=== PATIENT | male | born 1945 | race Caucasian/White ===

== ENCOUNTER 2017-09-17 11:03 | Emergency (ER) | payer BC ==
[~2017-09-17] VITALS: Ht 182.9 cm; Wt 111.1 kg
[2017-09-17] MEDS ORDERED: ZITHROMAX250 MG PO (12:40)
[2017-09-17 13:14] VITALS: BP 157/99
== END 2017-09-17 12:50 | disposition home or self-care (01) ==
LOC: FSED 11:03
DX: R05 Cough (principal); J00 Acute nasopharyngitis [common cold]
CPT/HCPCS: 99282

== ENCOUNTER 2019-01-03 10:53 | Emergency (ER) | payer BC, MEDICARE ==
[~2019-01-03] VITALS: Ht 182.9 cm; Wt 111.1 kg
[~2019-01-03 10:53] MED LIST: ZITHROMAX250 MG PO
--- OUTSIDE RECORDS SUMMARY | 2019-01-03 10:55 | XMS REPORT | Continuity of Care Document ---
Author Author [facility] Interface Address Unknown Phone Unavailable Problems Problem Status Onset Date Classification Date Reported Comments Source Medications Medication Details Route Status Patient Instructions Ordering Provider Order Date Source Azithromycin (Zithromax) 250 Mg Tablet Daily Active Kari 09/17/2017 [facility] Allergies, Adverse Reactions, Alerts Substance Category Reaction Severity Reaction type Status Date Reported Comments Source Wuekyya-Dvh-Qfv Reductase Inhibitor Lightheaded, n/v Unknown Allergy to Substance Active 09/17/2017 [facility] Immunizations Immunization Date Given Site Status Last Updated Comments Source Results Order Name Results Value Reference Range Date Interpretation Comments Source Vital Signs Vital Sign Value Date Comments Source Encounters Location Location Details Encounter Type Encounter Number Reason For Visit Attending Provider ADM Date DC Date Status Source Departed Emergency Room [id number] NIESHA CONNOR MD 09/17/2017 09/17/2017 [facility] Procedures Procedure Code Date Perfomer Comments Source
[2019-01-03] MEDS ORDERED: KETOROLAC TROMETHAMINE 30 MG/ML VIAL IM PRN (11:45)
[2019-01-03] MEDS ORDERED: SODIUM CHLORIDE 0.9% 50ML 50 ML ONE (11:50)
[2019-01-03] MEDS ORDERED: IOPAMIDOL 370 MG/ML 200 ML INFUS..BTL INJ ONE (11:50)
--- NOTE | 2019-01-03 12:52 | Diagnostic Imaging Report ---
EXAM: CT Abdomen and Pelvis WITH contrast INDICATION: Right lower quadrant abdominal pain. COMPARISON: None. TECHNIQUE: Abdomen and pelvis were scanned utilizing a multidetector helical scanner from the lung base to the pubic symphysis after administration of IV contrast. Coronal and sagittal reformations were obtained. Routine protocol was performed. Scan was performed when during portal venous phase. IV CONTRAST: 100 cc of Isovue 370 ORAL CONTRAST: Water COMPLICATIONS: None RADIATION DOSE: Total DLP: 835.9 mGy*cm Dose modulation, iterative reconstruction, and/or weight based adjustment of the mA/kV was utilized to reduce the radiation dose to as low as reasonably achievable. FINDINGS: LINES and TUBES: None. LOWER THORAX: Patchy dependent atelectasis. Scattered coronary atherosclerosis. HEPATOBILIARY: Diffuse mild hepatic steatosis. No evidence of focal lesion. No biliary ductal dilation. GALLBLADDER: Cholelithiasis without evidence of cholecystitis. SPLEEN: No splenomegaly. PANCREAS: No focal masses or ductal dilatation. ADRENALS: No adrenal nodules KIDNEYS/URETERS: Kidneys enhance symmetrically. No evidence of hydronephrosis, solid mass, or stone. GI TRACT: No evidence of wall thickening or distension. Appendix is normal. There is sigmoid colonic diverticulosis without CT evidence of diverticulitis. PELVIC ORGANS/BLADDER: Unremarkable. LYMPH NODES: No lymphadenopathy. VESSELS: There are scattered atherosclerotic calcifications in the aorta and branch vessels. PERITONEUM / RETROPERITONEUM: No free air or fluid. BONES AND SOFT TISSUES: No acute osseous abnormality. No suspicious lytic or blastic lesions. Fat-containing right inguinal hernia. Degenerative changes at L5-S1. CONCLUSION: Normal appendix. Diffuse mild hepatic steatosis. Cholelithiasis without CT evidence of cholecystitis. Sigmoid colonic diverticulosis. Signed by: Dr. Roseanna Lira MD on 01/03/2019 12:49 PM
[2019-01-03] MEDS ORDERED: KETOROLAC TROMETHAMINE 30 MG/ML VIAL ONE (13:01)
[2019-01-03 13:17] VITALS: BP 173/90
== END 2019-01-03 13:22 | disposition home or self-care (01) ==
LOC: FSED 10:53
DX: K40.90 Unilateral inguinal hernia, without obstruction or gangrene, not specified as recurrent (principal); I10 Essential (primary) hypertension; E03.9 Hypothyroidism, unspecified; K21.9 Gastro-esophageal reflux disease without esophagitis; K80.20 Calculus of gallbladder without cholecystitis without obstruction; K76.0 Fatty (change of) liver, not elsewhere classified; K57.30 Diverticulosis of large intestine without perforation or abscess without bleeding
CPT/HCPCS: 74177; 80053; 81003; 85025; 99284; J1885; Q9967

== ENCOUNTER 2019-03-20 11:45 | Observation (INO) | payer MEDICARE ==
[~2019-03-20] VITALS: Ht 182.9 cm; Wt 101.2 kg
--- OUTSIDE RECORDS SUMMARY | 2019-03-20 11:48 | XMS REPORT ---
[facility] Address Unknown Phone Unavailable Care Team Providers Care Button Tufter Name Role Phone ROSINA AN Unavailable Unavailable Javed DIMAS Unavailable Unavailable ROYCE HAMMOND Unavailable Unavailable Problems This patient has no known problems. Allergies, Adverse Reactions, Alerts This patient has no known allergies or adverse reactions. Medications This patient has no known medications. Results Test Description Test Time Test Comments Text Results Atomic Results Result Comments TISSUE EXAM 2019-01-30 17:27:00 Surgical Pathology Report Case: [id number] Authorizing Provider: Simeon An, Collected: 01/23/2019 1111 Ordering Location: [facility] Received: 01/23/2019 [facility] SERVICES Pathologist: Pablo Flaherty MD Specimen: Stoma ch, PARTIAL GASTRECTOMY STOMACH, PARTIAL GASTRECTOMY: - GASTROINTESTINAL STROMAL TUMOR, SPINDLE CELL TYPE, FAVOR LOW GRADE (SEE COMMENT), 2.5CM IN GREATEST DIMENSION - SURGICAL RESECTION MARGINS, NEGATIVE FOR TUMOR - AJCC CLASSIFICATION (8TH EDITION) pT2, Mx (SEE SYNOPTIC REPORT) Signing Pathologist Direct Phone Line: [phone] signed by Pablo Flaherty MD on 01/30/2019 at 5:27 PMSections show spindle cell proliferation, compatible with patient's prior biopsy [id number]. The mitotic count is 5 per 5 mm2 (based on highest count), which is bordering between low and high grade. Ki67 labeling index is approximately 3%. Taken all the findings together, a low grade process is favored. (The risk of progressive disease should be very low if it represents low grade (1.9%), based on the size. If classified as high grade, the risk of progressive disease would be moderate (16%), based on the information from [employer] GIST protocol.) Clinical correlation and follow-up are recommended.GASTROINTESTINAL STROMAL TUMOR (GIST): Resection (GIST Res - All Specimens)CLINICAL Preresection Treatment: Previous biopsy or surgery: Previous FNA SPECIMEN Procedure: Resection Type: Partial Gastrectomy TUMOR Tumor Site: Stomach : Gastric antrum Histologic Type: Gastrointestinal stromal tumor, spindle cell type Histologic Grade: G1: Low grade; mitotic rate <=5 / 5 mm2 Tumor Size: Greatest dimension in Centimeters (cm): 2.5 Centimeters (cm) Additional Dimension in Centimeters (cm): 2.5 Centimeters (cm) Additional Dimension in Centimeters (cm): 2.2 Centimeters (cm) Tumor Focality: Unifocal Accessory Findings: Mitotic Rate: 5 mitoses per 5 mm2 Necrosis: Not identified Risk Assessment: Very low risk Treatment Effect: No known presurgical therapy MARGINS Margins: Uninvolved by GIST Distance of Tumor from Closest Margin: 0.4 Centimeters (cm)LYMPH NODES Regional Lymph Nodes: No lymph nodes submitted or found PATHOLOGIC STAGE CLASSIFICATION (pTNM, AJCC 8th Edition) Primary Tumor (pT): pT2 SPECIAL STUDIES Immunohistochemical Studies: Not performed 67352, 70183Vmviksw mass, unilateral inguinal hernia without obstruction or gangrene, recurrent, no specified, rightReceived in one part. Partial gastrectomyReceived fresh labeled with the patient's name, accession number and "stomach" is a 7.0 x 3.0 x 2.5 cm irregular portion of unoriented stomach within a laparoscopic bag. There is a minimal amount of perigastric tissue and a T-shaped staple line. The serosa is smooth, pink-red to maroon with focal areas of hemorrhage. The specimen is opened to reveal a well-circumscribed, owen-white, firm subserosal and submucosal mass measuring 2.5 x 2.5 x 2.2 cm. The mass abuts the serosa and is 0.4 cm from the closest staple line. The remaining mucosa is rothman-pink, smooth to nodular with focal areas of hemorrhage. The wall thickness is 0.1 cm. No lymph nodes are present in the adipose tissue. Asphalt Surface Heater Operator sections are submitted. Ink code: Blue staple margin; black serosa; Section code: A1-A7 mass in its entirety; A8 public relations representative of nodular and hemorrhagic mucosa. CG/bc Performed.The interpretation of this case included the use of immunohistochemistry or special stains.Control Slides Examined: In-house known positive controls were evaluated along with the test tissue. These control slides run alongside of the patients sample show appropriate staining. Internal positive and negative controls when available are evaluated Immunohistochemistry technical testing was performed at [facility], Pathology Laboratory where it was developed and its performance characteristics were determined. It has not been cleared or approved by the U.S. Food and Drug Administration. The FDA has determined that such clearance or approval is not necessary. The test is used for clinical purposes. It should not be regarded as investigational or for research. This laboratory is certified under the Clinical Laboratory Improvement Amendments of 1988 (CLIA-88) as qualified to perform high complexity clinical laboratory testing. CT ABD/PEL WITH CONTRAST-HOPD 2019-01-03 12:40:00 [place] [address] Patient Name: BYRON GUTIERREZ MR #: [id number] : 1945 Age/Sex: 73/M Req #: [id number] Adm Physician: Ordered by: JANEY DIMAS MD Report #: [id number] Location: [facility] Room/Bed: Procedure: [id number] HOPD/CT ABD/PEL WITH CONTRAST-HOPD Exam Date: 01/03/19 Exam Time: 1215 REPORT STATUS: Signed EXAM: CT Abdomen and Pelvis WITH contrast INDICATION: Right lower quadrant abdominal pain. COMPARISON: None. TECHNIQUE: Abdomen and pelvis were scanned utilizing a multidetector helical scanner from the lung base to the pubic symphysis after administration of IV contrast. Coronal and sagittal reformations were obtained. Routine protocol was performed. Scan was performed when during portal venous phase. IV CONTRAST: 100 cc of Isovue 370 ORAL CONTRAST: Water COMPLICATIONS: None RADIATION DOSE: Total DLP: 835.9 mGy*cm Dose modulation, iterative reconstruction, and/or weight based adjustment of the mA/kV was utilized to reduce the radiation dose to as low as reasonably achievable. FINDINGS: LINES and TUBES: None. LOWER THORAX: Patchy dependent atelectasis. Scattered coronary atherosclerosis. HEPATOBILIARY: Diffuse mild hepatic steatosis. No evidence of focal lesion. No biliary ductal dilation. GALLBLADDER: Cholelithiasis without evidence of cholecystitis. SPLEEN: No splenomegaly. PANCREAS: No focal masses or ductal dilatation. ADRENALS: No adrenal nodules KIDNEYS/URETERS: Kidneys enhance symmetrically. No evidence of hydronephrosis, solid mass, or stone. GI TRACT: No evidence of wall thickening or distension. Appendix is normal. There is sigmoid colonic diverticulosis without CT evidence of diverticulitis. PELVIC ORGANS/BLADDER: Unremarkable. LYMPH NODES: No lymphadenopathy. VESSELS: There are scattered atherosclerotic calcifications in the aorta and branch vessels. PERITONEUM / RETROPERITONEUM: No free air or fluid. BONES AND SOFT TISSUES: No acute osseous abnormality. No suspicious lytic or blastic lesions. Fat-containing right inguinal hernia. Degenerative changes at L5-S1. CONCLUSION: Normal appendix. Diffuse mild hepatic steatosis. Cholelithiasis without CT evidence of cholecystitis. Sigmoid colonic diverticulosis. Signed by: Dr. Najma Garcia MD on 01/03/2019 12:49 PM Dictated By: NAJMA GARCIA MD 1249 Transcribed By: BEN on 01/03/19 1249 COPY TO: JANEY DIMAS MD FINE NEEDLE ASPIRATION BY CLINICIAN 2018-11-21 17:11:00 Medical Cytology Report Case: [id number] Authorizing Provider: Ladonna Hammond MD Collected: 11/15/2018 1022 Ordering Location: [facility] Endoscopy Received: 11/16/2018 0852 Services Pathologist: Pablo Flaherty MD Specimen: Gastric SUBEPITHELIAL GASTRIC LESION, FNA BY CLINICIAN (CYTOSPINS AND CELL BLOCK OF ASPIRATE): - GASTROINTESTINAL STROMAL TUMOR, SPINDLE CELL TYPE ( SEE COMMENT) Signing Pathologist Direct Phone Line: [phone] ically signed by Pablo Flaherty MD on 11/21/2018 at 5:11 PMSections show spindle cell proliferation with predominantly bland features. No significant increase in mitotic figures are seen in the current sampling. No necrosis is seen. Immunostains performed on cell block sections show lesional cells to be positive for CD117 and DOG1, while negative for AE1/AE3, SMA and S100. Taken together, the findings are most compatible with a diagnosis of gastrointestinal stromal tumor. A low grade process is favored based on the current sampling. If possible, correlation with final resection specimen is recommended. 32630, 77986, 64960, 49050 X 42.1 cm oval intramural (subepithelial) lesion found in the cardia of the stomachGASTRIC LESION FNAPrepared cell block(A2) and 4 cytospins from 14 ml cytorich red fixative sampleCollected: [id number]: [id number].The interpretation of this case included the use of immunohistochemistry or special stains.Please see the immunohistochemistry results in the COMMENT section. Immunohistochemistry technical testing was performed at [facility], Pathology Laboratory where it was developed and its performance characteristics were determined. It has not been cleared or approved by the U.S. Food and Drug Administration. The FDA has determined that such clearance or approval is not necessary. The test is used for clinical purposes. It should not be regarded as investigational or for research. This laboratory is certified under the Clinical Laboratory Improvement Amendments of 1988 (CLIA-88) as qualified to perform high complexity clinical laboratory testing.[facility], Department of Pathology, [address] [place], [place] [id number], [facility], [address] [place] [id number], [facility], Department of Pathology, [address] [place] [id number], FINE NEEDLE ASPIRATE (FNA) REQUEST 2018-11-16 10:00:00 CYTOLOGY RESULT POINTER (SHAILAMALIKA) (test mfwq=[id number]) See Separate Report
--- OUTSIDE RECORDS SUMMARY | 2019-03-20 11:48 | XMS REPORT | Summary of Care ---
Author Jeremy Becerra [facility] Unknown Address Unknown Phone Unavailable Care Team Providers Care Lamination Inspector Name Role Phone ANNEMARIE Whaley, BECKY Unavailable Unavailable ADRIAN SANDERS Unavailable Unavailable Nathan Ramos MD Unavailable Unavailable NATHAN RAMOS M.D. 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.40) Status: Active Plantar fasciitis (728.71, M72.2) Status: Active Osteoarthritis of both knees, unspecified osteoarthritis type (715.96, M17.0) Status: Active Glucose intolerance (impaired glucose tolerance) (790.22, R73.02) Status: Active Hypothyroid (244.9, E03.9) Status: Active Papule of skin (709.8, R23.8) Status: Active Allergic rhinitis (477.9, J30.9) Status: Active Statin intolerance (995.27, Z78.9) Status: Active Need for zoster vaccination (V04.89, Z23) Status: Active Hypothyroidism (244.9, E03.9) Status: Active Lumbar disc disease (722.93, M51.9) Status: Active Thoracic disc disease (722.92, M51.9) Status: Active Back pain (724.5, M54.9) Status: Active Paresthesia (782.0, R20.2) Status: Active Mixed hyperlipidemia (272.2, E78.2) Status: Active Need for hepatitis C screening test (V73.89, Z11.59) Status: Active Hepatitis C antibody positive in blood (795.79, R76.8) Status: Active Screening for AAA (abdominal aortic aneurysm) (V81.2, Z13.6) Status: Active Colon cancer screening (V76.51, Z12.11) Status: Active Sternum pain (786.50, R07.89) Status: Active GERD (gastroesophageal reflux disease) (530.81, K21.9) Status: Active Blood pressure elevated without history of HTN (796.2, R03.0) Status: Active Acute upper respiratory infection (465.9, J06.9) Status: Active Medications Name Dates Details Levothyroxine Sodium 125 MCG Oral Tablet TAKE 1 TABLET BY MOUTH EVERY MORNING Quantity: 90 RASHAUN P.ADRIAN Keith * Start : 25-Jun-2016 Active Omeprazole 20 MG Oral Capsule Delayed Release TAKE ONE CAPSULE BY MOUTH DAILY * Quantity: 90 Refills: 1 RASHAUN Nikki.ADRIAN Keith * Start : 11-Dec-2016 Active Ezetimibe 10 MG Oral Tablet TAKE 1 TABLET BY MOUTH DAILY. * Quantity: 90 Refills: 1 RASHAUN ADRIAN Stone * Start : 16-Aug-2017 Active Hiuekdpil-Mnfpnqsk-JD 30-2-10 MG/5ML Oral Syrup TAKE 5 ML EVERY 4 TO 6 HOURS NEEDED. * Quantity: 240 Refills: 0 SHARPE N.P., BECKY * Start : 26-Aug-2018 Active Fluticasone Propionate 50 MCG/ACT Nasal Suspension USE 1 SPRAY IN EACH NOSTRIL TWICE DAILY. * Quantity: 1 Refills: 1 SHARPE N.P., BECKY * Start : 26-Aug-2018 Active 15.8 ML Bottle predniSONE 10 MG Oral Tablet TAKE 2 TABLET Daily take 2 tablets once daily for 5 days, then take 1 tablet onc e daily for 5 days * Quantity: 15 Refills: 0 SHARPE N.P., BECKY * Start : 31-Aug-2018 Active Allergies and Adverse Reactions Name Dates Details No Known Drug Allergies (Allergy) Status: Active Past Medical History Name Dates Details History of Prediabetes (790.29, R73.03) Status: Resolved History of thyroiditis (V12.29, Z86.39) Status: Resolved Procedures Procedure Dates Details History of Tonsillectomy Completed Immunization Name Dates Details Tdap on: Aug-2013 Prevnar 13 Intramuscular Suspension on: 09-Jul-2014 Pneumovax 23 25 MCG/0.5ML Injection Injectable on: 22-Jul-2016 Shingrix 50 MCG Intramuscular Suspension Reconstituted on: Oct-2017 Shingrix 50 MCG/0.5ML Intramuscular Suspension Reconstituted on: 17-Nov-2017 Shingrix 50 MCG/0.5ML Intramuscular Suspension Reconstituted on: 10-Mar-2018 Influenza on: 09-Jun-2018 Fluzone High-Dose 0.5 ML Intramuscular Suspension Prefilled Syringe on: 09-Jun-2018 Family History Name Dates Details Family history of cerebrovascular accident (CVA) (V17.1, Z82.3) Status: Active Social History Name Dates Details - Status: Name Dates Details Former smoker Vital Signs Date Test Result Details No Known Vitals to report Results Date Description Value Details Results not documented Plan of Care Name Dates Details Planned Observations Planned Goals not documented Instructions Name Dates Details Instructions not documented Encounters Appointment; JOHN BOWERS D.O. Encounter Diagnosis: Problem not documented On: 27-Jan-2017 9:15 Appointment; JOHN BOWERS D.O. Encounter Diagnosis: Problem not documented On: 08-Feb-2017 7:30 Appointment; ADRIAN RODNEY P.A. Encounter Diagnosis: Problem not documented On: 16-Aug-2017 8:00 Appointment; ADRIAN RODNEY P.A. Encounter Diagnosis: Problem not documented On: 16-Dec-2017 9:15 Appointment; ADRIAN RODNEY P.A. Encounter Diagnosis: Problem not documented On: 15-Jun-2018 7:45 Appointment; ADRIAN RODNEY P.A. Encounter Diagnosis: Problem not documented On: 15-Jun-2018 7:45 Appointment; BECKY SHARPE NP Encounter Diagnosis: Problem not documented On: 26-Aug-2018 15:30
--- OUTSIDE RECORDS SUMMARY | 2019-03-20 11:48 | XMS REPORT | Continuity of Care Document ---
Author Author [facility] Address Unknown Phone Unavailable Care Team Providers Care Re Recording Mixer Name Role Phone [facility] [employer] Information [employer] Unavailable Unavailable Problems No Data Provided for This Section Medications Medication Details Route Status Patient Instructions Ordering Provider Order Date Source Azithromycin (Zithromax) 250 Mg Tablet Daily Active Kari 09/17/2017 [facility] Allergies, Adverse Reactions, Alerts Substance Category Reaction Severity Reaction type Status Date Reported Comments Source Yamsgao-Orv-Zgq Reductase Inhibitor Lightheaded, n/v Unknown Allergy to Substance Active 09/17/2017 [facility] Immunizations No Data Provided for This Section Results No Data Provided for This Section Pathology Reports No Data Provided for This Section Diagnostic Reports No Data Provided for This Section Consultation Notes No Data Provided for This Section Discharge Summaries No Data Provided for This Section History and Physicals No Data Provided for This Section Vital Signs No Data Provided for This Section Encounters Location Location Details Encounter Type Encounter Number Reason For Visit Attending Provider ADM Date DC Date Status Source Departed Emergency Room [id number] NIESHA CONNOR MD 09/17/2017 09/17/2017 [facility] Procedures No Data Provided for This Section Assessment and Plan No Data Provided for This Section Plan of Care Plan of Care Date Source Discharge Date 09/17/17 12:50pm Disposition HOME, SELF-CARE Condition at Discharge Stable Instructions/Education Provided Upper Respiratory Infection - Adult Prescriptions See Medication Section Additional Instructions/Education Recommend: Mucinex (plain or DM) 600 mg - 2 tabs twice daily, to help with mucous and cough. Recommend: Zyrtec (Cetirizine) 10 mg - 1 tab daily, to help dry up nasal secretions. 09/17/2017 [facility] Social History Social History Date Source Smoking Status Start Date Stop Date Never Smoker 09/17/2017 [facility] Family History No Data Provided for This Section Advance Directives Order Name Results Value Date Source Advance Directives Advance Directives Directive Response Recorded Date/Time Does the patient have an advance directive? No 09/17/17 11:27am If yes, is advance directive on file with [facility]? No 09/17/17 11:27am If not on file with [facility] will patient provide a copy? No 09/17/17 11:27am Do you have a Directive to Physician? No 09/17/17 11:27am Do you have a Medical Power of Hand Kiss Setter? No 09/17/17 11:27am Do you have an out of hospital Do Not Resuscitate Order? No 09/17/17 11:27am Do you have any special needs we should be aware of? No 09/17/17 11:27am Do you have a support person here with you today? No 09/17/17 11:27am Did patient receive Notice of Privacy Practices? Yes 09/17/17 11:27am Did patient receive patient rights and responsibilities? Yes 09/17/17 11:27am 09/17/2017 [facility] Functional Status No Data Provided for This Section
--- OUTSIDE RECORDS SUMMARY | 2019-03-20 11:48 | XMS REPORT | Clinical Summary ---
Author Author YOHAN [facility] Electronic MaterialsSteele Memorial Medical CenterSocialplex Inc.[facility] Address Unknown Phone Unavailable Care Team Providers Care Furniture Upholstery Mechanic Name Role Phone Pcp, No PCP Unavailable Allergies Comments Active Allergy Reactions Severity Noted Date lightheadedness Ylcpyyj-Zwn-Mbz Reductase Other (See Medium 10/25/2018 Inhibitors Comments) Medications End Date Status Medication Sig Dispensed Refills Start Date Active omeprazole (PRILOSEC) 20 Take 20 mg by 0 MG capsule mouth daily. Active levothyroxine (SYNTHROID, Take 125 mcg 0 LEVOTHROID) 125 MCG by mouth tablet Every morning on an empty stomach. 11/01/2018 Discontinued omeprazole (PRILOSEC) 20 Take 20 mg by 0 MG capsule mouth daily. 11/01/2018 Discontinued levothyroxine (SYNTHROID, Take 125 mcg 0 LEVOTHROID) 125 MCG by mouth tablet Every morning on an empty stomach. 02/04/2019 acetaminophen-codeine Take 1 tablet 30 tablet 0 (TYLENOL-CODEINE #3) by mouth 9 300-30 mg per tablet every 4 (four) hours as needed for Pain for up to 10 days. 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 Encounters Care Team Description Date Type Specialty Miguelina Hunter MD 01/23/2019 Anesthesia Event Simeon An MD LAPAROSCOPY,GASTRECTOMY 01/23/2019 Surgery Simeon An MD 01/23/2019 [facility] General Internal Medicine - Encounter 01/25/2019 01/23/2019 Travel Resource, [employer] Preadmit Phone 01/18/2019 Hospital Pre-Admission Testing Encounter Ladonna Vazquez MD UPPER ENDOSCOPY,FNA W/ULTRASOUND 11/15/2018 Surgery Gastroenterology Flor Rodríguez 11/15/2018 Anesthesia Gastroenterology Event Ladonna Vazquez MD 11/15/2018 Hospital Gastroenterology Encounter Resource, [facility] Preadmit Phone 10/25/2018 Hospital Pre-Admission Testing Encounter after 03/19/2018 Social History Date Tobacco Use Types Packs/Day Years Used Former Smoker Smokeless Tobacco: Never Used Comments: quit 27 years ago Alcohol Use Drinks/Week oz/Week Comments No Alcohol Habits Answer Date Recorded How often do you have a drink containing alcohol? Never 10/25/2018 How many drinks containing alcohol do you have on Not asked a typical day when you are drinking? How often do you have six or more drinks on one Not asked occasion? Sex Assigned at Date Recorded Not on file Industry Job Start Date Occupation Not on file Not on file Not on file Travel End Travel History Travel Start No recent travel history available. Last Filed Vital Signs Time Taken Vital Sign Reading 01/25/2019 8:50 AM CDT Blood Pressure 160/82 01/25/2019 8:50 AM CDT Pulse 76 01/25/2019 8:50 AM CDT Temperature 35.6 C (96.1 F) 01/25/2019 8:50 AM CDT Respiratory Rate 18 01/25/2019 8:50 AM CDT Oxygen Saturation 94% - Inhaled Oxygen - Concentration 01/23/2019 8:48 AM CDT Weight 112.7 kg (248 lb 8 oz) 01/23/2019 8:48 AM CDT Height 182.9 cm (6') 01/23/2019 8:48 AM CDT Body Mass Index 33.7 Plan of Treatment Not on file Implants Device Identifier Shelf Expiration Date Model / Serial / Lot Implanted Type Area Manufactur [id number] 02/03/2022 [id number] / / [id number] Mesh Vladislav Pre-Shp 4.5x10cm [id number] Right: Groin CR - [id number] BARD:DAVOL Implanted: Qty: 1 on 01/23/2019 by Simeon An MD Procedures Comments Procedure Name Priority Date/Time Associated Diagnosis TISSUE EXAM AP Routine 01/23/2019 11:11 AM CDT HERNIORRHAPHY,HIATAL 01/23/2019 Gastric mass 10:00 AM CDT Unilateral inguinal hernia without obstruction or gangrene, recurrence not specified Case Notes 90 MINS PER NICKY(NO ICU BED NEEDED)CAT HY CALLED TO SWAP ROOM 19 AND ROOM 21/RUBEN 614 @ 2:17 HERNIORRHAPHY,INGUINAL 01/23/2019 Gastric mass UNILATERAL 10:00 AM CDT Unilateral inguinal hernia without obstruction or gangrene, recurrence not specified Case Notes 90 MINS PER NICKY(NO ICU BED NEEDED)CAT HY CALLED TO SWAP ROOM 19 AND ROOM 21/RUBEN 614 @ 2:17 LAPAROSCOPY,GASTRECTOMY 01/23/2019 Gastric mass 10:00 AM CDT Unilateral inguinal hernia without obstruction or gangrene, recurrence not specified Case Notes 90 MINS PER NICKY(NO ICU BED NEEDED)CAT HY CALLED TO SWAP ROOM 19 AND ROOM 21/RUBEN 614 @ 2:17 FINE NEEDLE ASPIRATE Routine 11/15/2018 (FNA) REQUEST 10:22 AM CDT FINE NEEDLE ASPIRATION BY AP Routine 11/15/2018 CLINICIAN 10:22 AM CDT REPORT OF PROCEDURE - 11/15/2018 ENDOSCOPY URL 10:18 AM CDT UPPER ENDOSCOPY,FNA 11/15/2018 Abnormal findings on W/ULTRASOUND 10:00 AM CDT diagnostic imaging of abdomen Special Needs (LINEAR SCOPE) after 03/19/2018 Results * Tissue Exam (01/23/2019 11:11 AM CDT) Case Report Surgical Pathology [facility] Report [facility] Case: [id number] Authorizing Provider:Simeon An, Collected: 01/23/2019 Christopher HOWARD Ordering Location: [facility] Received: 01/23/2019 1437 SERVICES Pathologist: Pablo Flaherty MD Specimen:Stomach, PARTIAL GASTRECTOMY DIAGNOSIS STOMACH, PARTIAL GASTRECTOMY: 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 proliferation, compatible with [facility] patient's prior biopsy C19952. The mitotic count is 5 per 5 [...] based on the information from [employer] GIST protocol.) Clinical correlation and follow-up are recommended. SYNOPTIC REPORT GASTROINTESTINAL STROMAL TUMOR [facility] (GIST): Resection(GIST Res [facility] - All Specimens) CLINICAL Preresection Treatment:Previous biopsy or surgery: Previous FNA SPECIMEN Procedure:Resection Type:Partial Gastrectomy TUMOR Tumor Site:Stomach :Gastric antrum Histologic Type:Gastrointestinal stromal tumor, spindle cell type Histologic Grade:G1: Low grade; mitotic rate <=5 / 5mm2 Tumor Size:Greatest dimension in Centimeters (cm): 2.5 Centimeters (cm) Additional Dimension in Centimeters (cm):2.5 Centimeters (cm) Additional Dimension in Centimeters (cm):2.2 Centimeters (cm) Tumor Focality:Unifocal Accessory Findings: Mitotic Rate:5 mitoses per 5 mm2 Necrosis:Not identified Risk Assessment:Very low risk Treatment Effect:No known presurgical therapy MARGINS Margins:Uninvolved by GIST Distance of Tumor from Closest Margin:0.4 Centimeters (cm) LYMPH NODES Regional Lymph Nodes:No lymph nodes submitted or found PATHOLOGIC STAGE CLASSIFICATION (pTNM, AJCC 8th Edition) Primary Tumor (pT):pT2 SPECIAL STUDIES Immunohistochemical Studies:Not performed CPT Code(s) 32424, 59199 [facility] CLINICAL HISTORY Gastric mass, unilateral [facility] inguinal hernia without [facility] obstruction or gangrene, recurrent, no specified, right SPECIMEN SOURCE Received in one part. Partial [facility] gastrectomy [facility] GROSS DESCRIPTION Received fresh labeled with [facility] the patient's name, accession [facility] number and "stomach" is a 7.0 x [...] nodes are present in the adipose tissue. C.O.D. Biller sections are submitted. Ink code: Blue staple margin; black serosa; Section code: A1-A7 mass in its entirety; A8 career services representative of nodular and hemorrhagic mucosa. CG/bc MICROSCOPIC DESCRIPTION Performed. [facility] SPECIAL STUDIES The interpretation of this [facility] case included the use of [facility] immunohistochemistry or special stains. Control Slides Examined: In-house known positive controls were evaluated along with the test tissue. These control slides run alongside of the patients sample show appropriate staining. Internal positive and negative controls when available are evaluated Immunohistochemistry technical testing was performed at [facility], Pathology Laboratory where it was [...] to perform high complexity clinical laboratory testing. Specimen Tissue Performing Organization Address City/State/Zipcode Phone Number [address] [address] [facility] * FINE NEEDLE ASPIRATE (FNA) REQUEST (11/15/2018 10:22 AM CDT) Cytology See Separate Report [facility] Specimen Fine Needle Aspirate Performing Organization Address City/[facility]/Zipcode Phone Number [address] [address] [facility] * Fine Needle Aspirate by Clinician (11/15/2018 10:22 AM CDT) Case Report Medical Cytology [facility] Report [facility] Case: [id number] Authorizing Provider:Ladonna Vazquez MDCollected: 11/15/2018 1022 Ordering Location: [facility] Endoscopy Received: 11/16/2018 0852 Services Pathologist: Pablo Flaherty MD Specimen:Gastric DIAGNOSIS SUBEPITHELIAL GASTRIC LESION, [facility] FNA BY CLINICIAN (CYTOSPINS [facility] AND CELL BLOCK OF ASPIRATE): - GASTROINTESTINAL STROMAL TUMOR, SPINDLE CELL TYPE ( SEE COMMENT) Signing Pathologist Direct Phone Line: [phone] COMMENT Sections show spindle cell [facility] proliferation with [facility] predominantly bland features. No significant increase in [...] correlation with final resection specimen is recommended. CPT Code(s) 32816, 54455, 50100, 75416 X 4 [facility] CLINICAL DATA 2.1 cm oval intramural [facility] (subepithelial) lesion found [facility] in the cardia of the stomach SPECIMEN SOURCE GASTRIC LESION FNA [facility] GROSS DESCRIPTION Prepared cell block(A2) and [address] [facility] cytospins from 14 ml cytorich [facility] red fixative sample Collected: [id number] Received: [id number] MICROSCOPIC DESCRIPTION Performed. [facility] SPECIAL STUDIES The interpretation of this [facility] case included the use of [facility] immunohistochemistry or special stains. Please see the immunohistochemistry results in the COMMENT section. Immunohistochemistry technical testing was performed at [facility], Pathology Laboratory where it was [...] to perform high complexity clinical laboratory testing. Gross assessment was [facility] performed at [place], Department of [facility] Pathology, [address] [place] [address], Technical component was [facility] performed at [place], Department [facility] Pathology, [address] [place] [address], Professional component [facility] was performed at [place], Department of [facility] Pathology, [address] [place] [address], Specimen Fine Needle Aspirate Narrative Performed At Performing Organization Address City/State/Zipcode Phone Number [address] [address] [facility] * REPORT OF PROCEDURE - ENDOSCOPY URL (11/15/2018 10:18 AM CDT) Narrative Performed At after 03/19/2018 Insurance Payer Benefit Subscriber ID Type Phone Address Plan / Group [facility] xxxxxxxxxxx MEDICARE ADV Advance Directives For more information, please contact: [address] [address] Date Inactivated Comments Code Status Date Activated 01/23/2019 2:38 PM Full Code 01/23/2019 8:20 AM This code status was determined by: Patient
--- NOTE | 2019-03-20 12:51 | Diagnostic Imaging Report ---
EXAMINATION: Head CT HISTORY: Dizziness, headache COMPARISON: None. TECHNIQUE: Multidetector axial images were obtained without contrast from the foramen magnum to the vertex . The images were reconstructed using brain and bone algorithms. Thin section brain images were reformatted into coronal and sagittal planes. Image quality: Motion/streaking artifact limits the evaluation of the skull base and posterior cranial fossa. Dose modulation, iterative reconstruction, and/or weight based adjustment of the mA/kV was utilized to reduce the radiation dose to as low as reasonably achievable. FINDINGS: Parenchyma: 1. Few scattered mostly juxtacortical white matter hypodensities, most likely nonspecific chronic microvascular ischemic changes. Otherwise there are no areas of abnormal density in the brain parenchyma. 2. No mass or hemorrhage. No CT evidence of acute territorial vascular insult. Extra-axial spaces:No abnormal density. No extra-axial fluid collections Brain volume: Normal for age. Ventricles: No hydrocephalus or displacement. Arteries: No density suggestive of thrombus. Dural sinuses: No abnormal density. Extra-axial spaces: No abnormal density. Foramen magnum: No mass, Chiari malformation, or basilar invagination. Sella: No obvious mass. Paranasal/mastoid sinuses: Imaged portions unremarkable. Skull/Scalp: No lytic or blastic lesions. No fractures. IMPRESSION: 1. No acute intracranial hemorrhage or cortical infarcts. 2. Minimal chronic microvascular ischemic changes. Signed by: Dr. Samia Vera M.D. on 03/20/2019 12:47 PM
[2019-03-20] MEDS: SODIUM CHLORIDE 0.9% 1000ML 1,000 ML IV SCH ×2 (12:59→16:00)
[2019-03-20] MEDS ORDERED: SODIUM CHLORIDE 0.9% 1000ML 1,000 ML ONE (13:01)
--- NOTE | 2019-03-20 14:30 | NUR ---
UPDATED PT ON POC AND GAVE PT A GATORADE, PT VITAL SIGNS STABLE, PT VOICES NO COMPLAINTS AT THIS TIME.
--- OUTSIDE RECORDS SUMMARY | 2019-03-20 15:28 | XMS REPORT | Clinical Summary ---
Author Author YOHAN ZAF Energy SystemsIdaho Falls Community HospitalGenomaticaH[facility] Address Unknown Phone Unavailable Care Team Providers Care Roll Icer Machine Name Role Phone Pcp, No PCP Unavailable Allergies Comments Active Allergy Reactions Severity Noted Date lightheadedness Atlcbtr-Ofl-Nzl Reductase Other (See Medium 10/25/2018 Inhibitors Comments) [...] LAPAROSCOPY,GASTRECTOMY 01/23/2019 Surgery Simeon An MD 01/23/2019 [facility] General Internal Medicine - Encounter 01/25/2019 01/23/2019 Travel Resource, [employer] Preadmit Phone 01/18/2019 Hospital Pre-Admission Testing Encounter Ladonna Vazquez MD UPPER ENDOSCOPY,FNA W/ULTRASOUND 11/15/2018 Surgery Gastroenterology Flor Rodríguez 11/15/2018 Anesthesia Gastroenterology Event Ladonna Vazquez MD 11/15/2018 Hospital Gastroenterology Encounter Resource, [facility] Preadmit Phone 10/25/2018 Hospital Pre-Admission [...] Serial / Lot Implanted Type Area Manufactur [id number] 02/03/2022 [id number] / / [id number] Mesh Vladislav Pre-Shp 4.5x10cm [id number] IMPLANTS Right: Groin CR - [id number] BARD:[id number] Implanted: Qty: 1 on 01/23/2019 by [...] 11:11 AM CDT) Case Report Surgical Pathology [facility] Report [facility] Case: [id number] Authorizing Provider:Simeon An, Collected: 01/23/2019 Christopher HOWARD Ordering Location: [facility] Received: 01/23/2019 1437 SERVICES Pathologist: Pablo Flaherty MD Specimen:Stomach, PARTIAL GASTRECTOMY DIAGNOSIS STOMACH, PARTIAL GASTRECTOMY: [facility] - 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 The mitotic count [...] based on the information from [employer] GIST protocol.) Clinical correlation and follow-up are recommended. 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 Partial [facility] gastrectomy [facility] GROSS DESCRIPTION Received fresh labeled with [facility] the patient's name, accession [facility] number and "stomach" is a 7.0 x [...] nodes are present in the adipose tissue. Seed Yeast Operator sections are submitted. Ink code: Blue staple margin; black serosa; Section code: A1-A7 mass in its entirety; A8 customer development representative of nodular and hemorrhagic mucosa. CG/bc MICROSCOPIC DESCRIPTION Performed. [facility] SPECIAL STUDIES The interpretation of this [facility] case included the use of [facility] immunohistochemistry or special stains. Control Slides Examined: In-house known positive controls were evaluated along with the test tissue. These control slides run alongside of the patients sample show appropriate staining. Internal positive and negative controls when available are evaluated Immunohistochemistry technical testing was performed at [facility], Pathology Laboratory where it was developed and [...] Tissue Performing Organization Address City/State/Zipcode Phone Number [address] [address] [facility] * FINE NEEDLE ASPIRATE (FNA) REQUEST (11/15/2018 10:22 AM CDT) Cytology See Separate Report [facility] Specimen Fine Needle Aspirate Performing Organization Address City/[facility]/Zipcode Phone Number [address] [address] [facility] * Fine Needle Aspirate by Clinician (11/15/2018 10:22 AM CDT) Case Report Medical Cytology [facility] Report [facility] Case: [id number] Authorizing Provider:Ladonna Vazquez MDCollected: 11/15/2018 1022 [facility] Received: 11/16/2018 0852 Services Pathologist: Pablo Flaherty MD Specimen:Gastric DIAGNOSIS SUBEPITHELIAL GASTRIC LESION, [facility] FNA BY CLINICIAN (CYTOSPINS [facility] AND CELL BLOCK OF ASPIRATE): - GASTROINTESTINAL STROMAL TUMOR, SPINDLE CELL TYPE ( SEE COMMENT) Signing Pathologist Direct Phone Line: [phone] COMMENT Sections show spindle cell [facility] proliferation with [facility] predominantly bland features. No significant increase in [...] final resection specimen is recommended. CPT Code(s) 18241, 87843, 82017, 57931 X 4 [facility] CLINICAL DATA 2.1 cm oval intramural [facility] (subepithelial) lesion found [facility] in the cardia of the stomach SPECIMEN SOURCE GASTRIC LESION FNA [facility] GROSS DESCRIPTION Prepared cell block(A2) and 4 [facility] cytospins from 14 ml cytorich [facility] red fixative sample Collected: [id number] Received: [id number] MICROSCOPIC DESCRIPTION Performed. [facility] SPECIAL STUDIES The interpretation of this [facility] case included the use of [facility] immunohistochemistry or special stains. Please see the immunohistochemistry results in the COMMENT section. Immunohistochemistry technical testing was performed at [facility], Pathology Laboratory where it was developed and [...] complexity clinical laboratory testing. Gross assessment was [facility] performed at [place], Department of [facility] Pathology, [address] [place] [address], Technical component was [facility] performed at [place], Department [facility] Pathology, [address] [place] [address], Professional component [facility] was performed at [place], Department of [facility] Pathology, [address] [place] [address], Specimen Fine Needle Aspirate Narrative Performed At Performing Organization Address City/State/Zipcode Phone Number [address] [address] [facility] * REPORT OF PROCEDURE - ENDOSCOPY URL (11/15/2018 10:18 AM CDT) Narrative Performed At after 03/19/2018 Insurance Payer Benefit Subscriber ID Type Phone Address Plan / Group [employer] INCLUD[facility] xxxxxxxxxxx MEDICARE ADV Advance Directives For more information, please contact: [address] [address] Date Inactivated Comments Code Status Date Activated 01/23/2019 2:38 PM Full Code 01/23/2019 8:20 AM This code status was determined by: Patient
--- OUTSIDE RECORDS SUMMARY | 2019-03-20 15:28 | XMS REPORT | Continuity of Care Document ---
Author Author [employer] Address Unknown Phone Unavailable Care Team Providers Care Drafting Layout Worker Name Role Phone [facility] Stand Offer Information Giggle Unavailable Unavailable Problems No Data Provided for This Section Medications Medication Details Route Status Patient Instructions Ordering Provider Order Date Source Azithromycin (Zithromax) 250 Mg Tablet Daily Active Kari 09/17/2017 [facility] Allergies, Adverse Reactions, Alerts Substance Category Reaction Severity Reaction type Status Date Reported Comments Source Vovjtea-Hix-Ban Reductase Inhibitor Lightheaded, n/v Unknown Allergy to Substance Active 09/17/2017 [facility] Immunizations No Data Provided for This Section [...] DC Date Status Source Departed Emergency Room [id number] NIESHA CONNOR MD 09/17/2017 09/17/2017 [facility] Procedures No Data Provided for This Section [...] to help dry up nasal secretions. 09/17/2017 [facility] Social History Social History Date Source Smoking Status Start Date Stop Date Never Smoker 09/17/2017 [facility] Family History No Data Provided for This Section Advance Directives Order Name Results Value Date Source Advance Directives Advance Directives Directive Response Recorded Date/Time Does the patient have an advance directive? No 09/17/17 11:27am If yes, is advance directive on file with [facility]? No 09/17/17 11:27am If not on file with [facility] will patient provide a copy? No 09/17/17 11:27am Do you have a Directive to Physician? No 09/17/17 11:27am Do you have a Medical Power of Oil Pipe Inspector? No 09/17/17 11:27am Do you have an [...] rights and responsibilities? Yes 09/17/17 11:27am 09/17/2017 [facility] Functional Status No Data Provided for This Section
--- NOTE | 2019-03-20 16:00 | NUR ---
PT TO BE ADMITTED, PT AWARE OF POC FOR ADMISSION AND TRANSFER
--- NOTE | 2019-03-20 16:13 | NUR ---
[facility] CALLED ETA 45MINS FOR TRANSFER.
--- NOTE | 2019-03-20 16:33 | NUR ---
REPORT TO LUPE AT MAIN ALL QUESTIONS ANSWERED
[2019-03-20 18:33] VITALS: BP 148/87
[2019-03-20] MEDS ORDERED: ACETAMINOPHEN 325 MG TAB PO PRN (19:45)
[2019-03-20] MEDS ORDERED: IBUPROFEN 600 MG TAB PO PRN (19:45)
[2019-03-20] MEDS ORDERED: ONDANSETRON HCL INJ 2MG/ML 2ML 2 MG/ML VIAL IV PRN (19:45)
[2019-03-20 20:00] VITALS: BP 177/82
[2019-03-21] VITALS (10 sets, daily range): BP systolic 131–152; BP diastolic 73–87
--- NOTE | 2019-03-21 07:09 | NUR ---
pt alert resp even and unlabored at this time no distress noted , pt has no c/o pain when asked, pt has family member at bedside, call light in reach.
--- NOTE | 2019-03-21 09:57 | NUR ---
p[t of unit for testing.
--- NOTE | 2019-03-21 13:56 | Diagnostic Imaging Report ---
MRI BRAIN WO HISTORY: TIA COMPARISON: Head CT 03/20/2019 TECHNIQUE: Sagittal T2, axial T2, axial T1, axial T2/FLAIR, axial gradient echo (or susceptibility weighted), coronal T2/FLAIR, and axial diffusion weighted MR images of the brain were obtained without contrast. DISCUSSION: Scalp/bone marrow: Unremarkable. Brain sulci: Appropriate for patient's age. Ventricles: Normal in size and configuration. No hydrocephalus. Extra-axial spaces: No masses or fluid collections. Parenchyma: Scattered T2/FLAIR hyperintense foci throughout the supratentorial white matter are likely chronic microvascular ischemic changes. Otherwise, no mass, hemorrhage, or acute vascular insults. Vessels: Normal flow voids in major arteries and veins. Sellar/Suprasellar region: No abnormalities. Craniocervical junction: No abnormalities. 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 There is mild mucosal thickening in the right sphenoid sinus. IMPRESSION: 1. No acute intracranial abnormalities. 2. Mild supratentorial chronic microvascular ischemic change. Signed by: Dr. Shaggy Upton M.D. on 03/21/2019 1:53 PM
--- NOTE | 2019-03-21 14:05 | NUR ---
Visit made by the Spiritual Care Department Pastoral Visitor, Hope Jordan. PV provided pastoral presence, prayer, hospitality, and supportive listening. Pastoral Visitor informed pt/family of the scope of [employer] and availability. TRAE REID Kitchen [employer]ner Spiritual Care Department O: [phone] Pager: [phone] ([phone] number calling from)
--- NOTE | 2019-03-21 19:01 | NUR ---
[facility]. PATIENT RESTING COMFORTABLY IN BED IN NO APPARENT DISTRESS. BED IS IN LOW LOCKED POSITION WITH CALL LIGHT IN REACH.
--- NOTE | 2019-03-21 19:04 | NUR ---
report given to oncoming nurse . pt stable.
[2019-03-21] MEDS: OXYMETAZOLINE HCL 0.05% NAS 1 SPRAY BTL SCH (20:32)
[2019-03-21] MEDS: SALINE 0.65% NAS SOLN 1 SPRAY BTL SCH (20:32)
--- NOTE | 2019-03-21 23:42 | Consultation ---
DATE OF CONSULTATION: 03/21/2019 Neurology Consult Note HISTORY OF PRESENT ILLNESS: Mr. Cochran is a 73-year-old right-hand dominant man with past medical history significant for prior history of hyperlipidemia and seizures as a child, admitted to [facility] on March 20, 2019, with symptoms suspicious for transient ischemic attack. At approximately 1030 hours on the day of admission, the patient was at work when he experienced a sudden onset of a flush sensation over the face and ears, tingling of both arms from the elbow to the wrist, and a tremor affecting both hands. The tremor lasted for only 10 minutes. However, the other symptoms persisted. Therefore, Mr. Cochran left work and drove home. En route, the patient developed numbness of the first two digits of the left hand. After arriving home, the patient decided to proceed to a [facility] near his home for further evaluation of his symptoms. While waiting to be seen at the [facility], the patient reports his entire tongue went numb. This persisted for approximately 30 minutes. Documentation of the patient's vital signs and neurological examination from the [facility] are not available for review at present. Mr. Cochran did undergo a CT of the brain without contrast at the [facility]. There is no evidence of recent large territorial ischemia or hemorrhage on this study. Mr. Cochran was subsequently transferred to [facility], where he was admitted under observation status for further evaluation and treatment of his symptoms. At present, the patient endorses the following symptoms: Headache and eye pain, which is further described as a dull aching pain across the forehead and behind the eyes. Mr. Cochran endorses continued tingling over both forearms and numbness of the first two digits of the left hand. All other symptoms described above have resolved. Mr. Cochran does not report experiencing similar symptoms previously. He does not report recent worsening of psychosocial stressors or anxiety. REVIEW OF SYSTEMS: Nasal congestion (chronic), tingling of both forearms, numbness of the first two digits of the left hand, tremors, low back pain (chronic), dizziness which is further described as a lightheaded sensation (present for one week), headache/facial pain, and flushing. Otherwise, a 12-point review of systems is negative. PAST MEDICAL HISTORY: Prior history of hyperlipidemia, Graves disease, thyroid disease, gastroesophageal reflux disease, and seizures as a child. PAST SURGICAL HISTORY: Tonsillectomy, removal of a mass from the stomach, exploratory laparoscopy, right umbilical hernia repair, exposure to radioactive iodine for Graves disease. PAST HOSPITALIZATIONS: Surgeries/procedures as listed. FAMILY MEDICAL HISTORY: The patient's father is . He had a history of coronary artery disease. His cause of was failure to thrive. Mr. Cochran's mother is from a ruptured cerebral artery aneurysm. The patient has three siblings, one brother and two sisters. All of his siblings are alive. One sister has hypertension. The remaining two siblings are healthy. Mr. Cochran has three children, two sons and a daughter, all of whom are living. One son has diabetes mellitus. The other two children are healthy. SOCIAL HISTORY: Mr. Cochran is . He works in sales for [employer]. The patient reports a remote history of tobacco use, but quit smoking cigarettes 44 years ago. Mr. Cochran does not report alcohol or recreational drug use. HOME MEDICATIONS: Levothyroxine 125 mcg by mouth every morning and omeprazole 20 mg by mouth daily. HOSPITAL MEDICATIONS: Acetaminophen, ibuprofen, and Zofran. ALLERGIES: HMG-COA REDUCTASE INHIBITORS. NO KNOWN FOOD ALLERGIES. NO KNOWN ALLERGIES TO LATEX. NO KNOWN ALLERGIES TO IODINE OR OTHER CONTRAST MATERIALS. PHYSICAL EXAMINATION: VITAL SIGNS: Height 72 inches, weight 223 pounds, BMI 30.2 kg/m2, blood pressure 135/87 mmHg, pulse 64 beats per minute, respiratory rate 17 breaths per minute, and oxygen saturation 98% on room air. GENERAL: The patient is awake and alert, does not appear distressed. Obese. HEENT: Normocephalic and atraumatic. Pupils are equal, round, and reactive to light. Moist mucous membranes. Tenderness to palpation over the frontal and maxillary sinuses bilaterally. NECK: Supple. No appreciable thyromegaly. No appreciable carotid bruits. CARDIOVASCULAR: S1, S2, regular rate and rhythm. No murmurs, rubs, or gallops. RESPIRATORY: Clear to auscultation bilaterally. No wheezes, rhonchi, or rales. EXTREMITIES: The skin is warm and dry. No clubbing, cyanosis, or edema. The posterior tibial and dorsalis pedis pulses are 2+ and symmetric. Positive Tinel's at the left cubital tunnel. SKIN: No rashes or lesions. NEUROLOGIC: Memory/Attention: The patient is awake and alert, oriented to person, place, time, and situation. Cranial Nerves: Cranial nerve I - not tested. Cranial nerves II, III, IV, and - pupils are equal and round, reactive briskly to light (from 4 mm to 2 mm). Extraocular movements intact. No nystagmus. Cranial nerve V - sensation to light touch and pinprick is intact in the bilateral V1 through V3 distributions. Strength in the temporalis and masseter muscles are within normal limits. Cranial nerve VII - the face is symmetric as are all facial movements. Strength is within normal limits. Cranial nerve VIII - hearing is intact to finger rub bilaterally. Cranial nerves IX, X - the soft palate elevates equally and symmetrically. Cranial nerve XI - normal strength of the bilateral sternocleidomastoid and trapezius muscles. Cranial nerve XII - the tongue protrudes midline and moves symmetrically from fluj-gd-ltzb. Strength: Bulk is normal. Strength is 5/5 in the bilateral deltoids, biceps, triceps, wrist flexors and extensors, finger flexors and extensors, intrinsic hand muscles, hip flexors, knee flexors and extensors, ankle dorsiflexion and plantar flexion, and intrinsic foot muscles. Tone is normal. DTRs: Deep tendon reflexes are 2+ and symmetric at the triceps, biceps, brachioradialis, patellas, and Achilles. Plantar responses are flexor bilaterally. Sensation: Sensation is intact to light touch and pinprick in both arms and both legs. Cerebellar: Wnyalb-ynqu-lqhlre and heel-romero movements are intact without dysmetria or other impairment. Gait: Deferred. Speech: Spontaneous speech is normal without appreciable dysarthria or aphasia. Repetition is intact. Involuntary Movements: None. Pronator Drift: None. LABORATORY DATA: TSH 1.561. DIAGNOSTIC STUDIES: Electrocardiogram on 03/20/2019: Sinus bradycardia at 57 beats per minute. Low-voltage QRS. CT of the brain without contrast on 03/20/2019: On my review, there is no evidence of recent or remote large territorial ischemia, hemorrhage, mass, or mass effect. Cerebral volumes are appropriate for age. Their findings compatible with mild chronic small-vessel ischemic disease. MRI of the brain without contrast on 03/21/2019: On my review, there is no evidence of recent or remote large territorial ischemia, hemorrhage, mass, or mass effect. Cerebral volumes are appropriate for age. There are scattered T2/FLAIR hyperintense foci throughout the supratentorial white matter compatible with mild chronic small vessel ischemic disease. ASSESSMENT AND PLAN: Mr. Cochran is a 73-year-old right-hand dominant man with past medical history as detailed, admitted to [facility] under observation status on March 20, 2019, for multiple symptoms, which are detailed in the history of present illness. At present, the patient's neurological examination is nonfocal. His laboratory data and other diagnostic studies have been reviewed and are documented above. Mr. Cochran did not experience a transient ischemic attack. As multiple of his symptoms have persisted for more than 24 hours, he cannot, by definition, have experienced transient ischemic attack. Neither of his neuroimaging studies reveal evidence of recent ischemia or hemorrhage. In my opinion, the head and facial pain described by the patient represents sinus headaches. The paresthesias over the forearms and the numbness affecting the first two digits of the left hand probably represent entrapment neuropathies versus cervical radiculopathies. Further evaluation as an outpatient may be pursued if so desired. Thank you for this consultation. There are no other recommendations from the Neurology Service at this time. Mr. Cochran may be discharged to home per the primary service. TIME SPENT: 50 minutes. Claudette Skaggs MD CP/OLGA /[id number] BEULAH
[2019-03-22] VITALS: BP 146/72
--- NOTE | 2019-03-22 00:08 | Consultation ---
DATE OF CONSULTATION: 03/21/2019 HISTORY OF PRESENT ILLNESS: I was kindly asked to see this 73-year-old man for evaluation of "sinus headache." The patient has an approximately 10-year history of chronic rhinosinusitis and nasal airway obstruction. Approximately 5 years ago, he underwent nasal surgery by another physician. However, he continued to have a whistling noise in his nose as well as persistent nasal airway obstruction and subsequently underwent revision surgery approximately 4 years ago. He continued to have difficulty breathing through his nose, significantly worse on the right side. He has seasonal variations in his symptoms and is worse during the summer months. He is also worse when 1st awakening in the morning for approximately 1 hour after getting up. He reports being evaluated by an heel cutter and was told he had tested dust mite allergies. Over the last 4 to 6 months, he complains of headaches, which he reports is pain around his eyes and forehead region radiating to the back of his head, occur 15 to 20 days per month. Typically, he has headaches which lasts all day. He also has congestion and excessive drainage down the back of his throat. He uses bcit-xlb-sudzrpy antihistamines with modest improvement. He does not consistently use nose sprays. His history of present illness, past medical history, and past surgical history all reviewed in detail in the chart. PHYSICAL EXAMINATION: The tympanic membranes and external auditory canals were unremarkable. He had moderately severe edema of the nasal mucosa. Oral cavity examination was unremarkable. Moderate postnasal drainage. There was no palpable cervical adenopathy. On fiberoptic diagnostic rhinoscopy, he had a nasal septal floor spur to the right. There was a nasal septal perforation. There was inferior turbinate hypertrophy. The ostiomeatal complex with thick mucus, but there was no active infection identified and hospital workup consisting of a CT scan of the head and MRI scan of the head showed no sinus pathology on the report. The images were not available at time of consultation. ASSESSMENT: 1. Chronic allergic rhinosinusitis. 2. Nasal septal deviation. 3. Inferior turbinate hypertrophy. 4. Headache. PLAN: 1. Flonase 2 puffs each side of the nose daily. 2. Afrin nasal spray two puffs each side of nose b.i.d. for three days. 3. [place] nasal spray two puffs q.4 hours, while awake. 4. Outpatient evaluation with Allergy evaluation and consideration of revision surgery of nasal airway obstruction persist after optimization of his allergy treatment. Thank you very much. MD TAYA Win/OLGA /[id number]
[2019-03-22 04:00] VITALS: BP 132/72
[2019-03-22] MEDS: SALINE 0.65% NAS SOLN 1 SPRAY BTL SCH ×2 (06:00→10:00)
--- NOTE | 2019-03-22 07:02 | NUR ---
BEDSIDE REPORT GIVEN TO MARIAELENA NORRIS AT THIS TIME.
[2019-03-22 08:10] VITALS: BP 141/81
[2019-03-22] MEDS: OXYMETAZOLINE HCL 0.05% NAS 1 SPRAY BTL SCH (08:10)
[2019-03-22 08:14] VITALS: BP 141/81
[2019-03-22] MEDS ORDERED: FLUTICASONE PROPIONATE NASAL SPRAY NS SCH (09:00)
[2019-03-22] MEDS ORDERED: [UNRECOGNIZED DRUG - OTHER] (10:53)
[2019-03-22] MEDS ORDERED: AFRIN15 ML (10:53)
[2019-03-22] MEDS ORDERED: SALINE NOSE SPR45 ML (10:54)
--- NOTE | 2019-03-22 11:05 | NUR ---
patient alert and oriented, discharge instructions given at this time, patient verbalized understanding. IV discontinued, catheter in tact and small dressing applied. patient to be wheeled out to personal auto for daughter to drive home.
--- NOTE | 2019-03-23 02:34 | Discharge Summary ---
PRIMARY CARE DOCTOR: Dr. Cihp Shay. FINAL DIAGNOSIS: Bilateral upper extremities numbness and paresthesia, possibly due to cervical radiculopathy, but not transient ischemic attack. SECONDARY DIAGNOSES: 1. Sinus headache. 2. Hypothyroidism. CONSULTANTS: 1. Dr. Skaggs, neurology. 2. Dr. Awad, ENT. PROCEDURE/STUDIES PERFORMED: 1. MRI of the brain, which was unremarkable. 2. Head CT, which was unremarkable. HISTORY: Per [facility] and P. HOSPITAL COURSE: The patient was admitted. His workup is negative for TIA or ischemic stroke. This is likely a peripheral neuropathy, possibly due to cervical radiculopathy. His TSH is normal. The patient was evaluated by ENT. Fiberoptic evaluation reveals chronic allergic rhinosinusitis. Flonase, Afrin, and [place] nasal spray were prescribed. The patient was also evaluated by Neurology as well. At this time, his symptoms is a little bit better. The patient was seen and examined today. CONDITION ON DISCHARGE: Improved. DISCHARGE MEDICATIONS: Please see medication reconciliation form. I have updated his PCP about this hospitalization and the patient will follow up with him in a week. Yiching MD DANAE Seras/OLGA /[id number] cc: [facility]
== END 2019-03-22 11:32 | disposition home or self-care (01) ==
LOC: FSED 11:45 → ERHOLD 14:55 → MED/SURG 17:54
PROVIDERS: ADMIT Internal Medicine; ATTEND Internal Medicine
DX: R20.2 Paresthesia of skin (principal); R20.0 Anesthesia of skin; R63.4 Abnormal weight loss; R51 Headache; E78.5 Hyperlipidemia, unspecified; J30.89 Other allergic rhinitis; J34.2 Deviated nasal septum; J34.3 Hypertrophy of nasal turbinates; E03.9 Hypothyroidism, unspecified; Z82.49 Family history of ischemic heart disease and other diseases of the circulatory system; Z87.891 Personal history of nicotine dependence; Z88.8 Allergy status to other drugs, medicaments and biological substances
CPT/HCPCS: 36415; 70450; 70551; 80053; 81003; 84443; 84484; 85025; 93005; 99284; G0378 ×3; J7030

== ENCOUNTER 2019-03-27 19:25 | Emergency (ER) | payer MEDICARE ==
[~2019-03-27] VITALS: Ht 182.9 cm; Wt 99.3 kg
[~2019-03-27 19:25] MED LIST changes: +AFRIN15 ML; +SALINE NOSE SPR45 ML; +[UNRECOGNIZED DRUG - OTHER]
--- OUTSIDE RECORDS SUMMARY | 2019-03-27 19:27 | XMS REPORT | Clinical Summary ---
Author Author [email or web address] Address Unknown Phone Unavailable Care Team Providers Care Embedded Hardware Engineer Name Role Phone Pcp, No PCP Unavailable Allergies Comments Active Allergy Reactions Severity Noted Date lightheadedness Zjtngvm-Sip-Fca Reductase Other (See Medium 10/25/2018 Inhibitors Comments) [...] LAPAROSCOPY,GASTRECTOMY 01/23/2019 Surgery Simeon An MD 01/23/2019 [facility] General Internal Medicine - Encounter 01/25/2019 01/23/2019 Travel Resource, [employer] P[employer] Phone 01/18/2019 Hospital Pre-Admission Testing Encounter Ladonna Vazquez MD UPPER ENDOSCOPY,FNA W/ULTRASOUND 11/15/2018 Surgery Gastroenterology Flor Rodríguez 11/15/2018 Anesthesia Gastroenterology Event Ladonna Vazquez MD 11/15/2018 Hospital Gastroenterology Encounter Resource, [facility] Preadmit Phone 10/25/2018 Hospital Pre-Admission Testing Encounter after 03/26/2018 Social History Date Tobacco Use Types Packs/Day [...] Serial / Lot Implanted Type Area Manufactur [id number] 02/03/2022 [id number] / / [id number] Mesh Vladislav Pre-Shp 4.5x10cm [id number] IMPLANTS Right: Groin CR - [id number] BARD:DAVOL Implanted: Qty: 1 on 01/23/2019 by [...] of abdomen Special Needs (LINEAR SCOPE) after 03/26/2018 Results * Tissue Exam (01/23/2019 11:11 AM CDT) Case Report Surgical Pathology [facility] Report [facility] Case: [id number] Authorizing Provider:Simeon An, Collected: 01/23/2019 Christopher HOWARD Ordering Location: [facility] PERIOPERATIVE Received: 01/23/2019 1437 SERVICES Pathologist: Pablo Flaherty MD Specimen:Stomach, PARTIAL GASTRECTOMY DIAGNOSIS STOMACH, PARTIAL GASTRECTOMY: [facility] - 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 The mitotic count [...] based on the information from [employer] GIST protocol.) Clinical correlation and follow-up are recommended. SYNOPTIC REPORT GASTROINTESTINAL STROMAL TUMOR [facility] (GIST): Resection(GIST Res [facility] - All Specimens) CLINICAL Preresection Treatment:Previous biopsy [...] SPECIAL STUDIES Immunohistochemical Studies:Not performed CPT Code(s) 12020, 35554 [facility] CLINICAL HISTORY Gastric mass, unilateral [facility] inguinal hernia without [facility] obstruction or gangrene, recurrent, no specified, right SPECIMEN SOURCE Received in one part. Partial [facility] gastrectomy [facility] GROSS DESCRIPTION Received fresh labeled with [facility] the patient's name, accession [facility] number and "stomach" is a 7.0 x [...] nodes are present in the adipose tissue. Embryology Teacher sections are submitted. Ink code: Blue staple margin; black serosa; Section code: A1-A7 mass in its entirety; A8 nutrition representative of nodular and hemorrhagic mucosa. CG/bc MICROSCOPIC DESCRIPTION Performed. [facility] SPECIAL STUDIES The interpretation of this [facility] case included the use of [facility] immunohistochemistry or special stains. Control Slides Examined: In-house known positive controls were evaluated along with the test tissue. These control slides run alongside of the patients sample show appropriate staining. Internal positive and negative controls when available are evaluated Immunohistochemistry technical testing was performed at [facility], Pathology Laboratory where it was [...] Tissue Performing Organization Address City/State/Zipcode Phone Number [address] [address] [facility] * FINE NEEDLE ASPIRATE (FNA) REQUEST (11/15/2018 10:22 AM CDT) Cytology See Separate Report [facility] Specimen Fine Needle Aspirate Performing Organization Address City/[facility]/Zipcode Phone Number [address] [address] [facility] * Fine Needle Aspirate by Clinician (11/15/2018 10:22 AM CDT) Case Report Medical Cytology [facility] Report [facility] Case: [id number] Authorizing Provider:Ladonna Vazquez MDCollected: 11/15/2018 1022 Ordering Location: [facility] OCOUNT INCLUDES THE [facility] Endoscopy Received: 11/16/2018 0852 Services Pathologist: Pablo Flaherty MD Specimen:Gastric DIAGNOSIS SUBEPITHELIAL GASTRIC LESION, [facility] FNA BY CLINICIAN (CYTOSPINS [facility] AND CELL BLOCK OF ASPIRATE): - GASTROINTESTINAL STROMAL TUMOR, SPINDLE CELL TYPE ( SEE COMMENT) Signing Pathologist Direct Phone Line: [phone] COMMENT Sections show spindle cell [facility] proliferation with [facility] predominantly bland features. No significant increase in [...] final resection specimen is recommended. CPT Code(s) 48233, 97871, 14877, 47252 X 4 [facility] CLINICAL DATA 2.1 cm oval intramural [facility] (subepithelial) lesion found [facility] in the cardia of the stomach SPECIMEN SOURCE GASTRIC LESION FNA [facility] GROSS DESCRIPTION Prepared cell block(A2) and 4 [facility] cytospins from 14 ml cytorich [facility] red fixative sample Collected: [id number] Received: [id number] MICROSCOPIC DESCRIPTION Performed. [facility] SPECIAL STUDIES The interpretation of this [facility] case included the use of [facility] immunohistochemistry or special stains. Please see the immunohistochemistry results in the COMMENT section. Immunohistochemistry technical testing was performed at [facility], Pathology Laboratory where it was [...] complexity clinical laboratory testing. Gross assessment was [facility] performed at [place], Department of [facility] Pathology, [address] [place] [id number], Technical component was [facility] performed at [place], Department [facility] Pathology, [address] [place] [id number], Professional component [facility] was performed at [place], Department of [facility] Pathology, [address] [place] [id number], Specimen Fine Needle Aspirate Narrative Performed At Performing Organization Address City/State/Zipcode Phone Number [address] [address] [facility] * REPORT OF PROCEDURE - ENDOSCOPY URL (11/15/2018 10:18 AM CDT) Narrative Performed At after 03/26/2018 Insurance Payer Benefit Subscriber ID Type Phone Address Plan / Group [employer] xxxxxxxxxxx MEDICARE ADV Advance Directives For more information, please contact: [address] [address] Date Inactivated Comments Code Status Date Activated 01/23/2019 2:38 PM Full Code 01/23/2019 8:20 AM This code status was determined by: Patient
--- OUTSIDE RECORDS SUMMARY | 2019-03-27 19:27 | XMS REPORT | Continuity of Care Document ---
Author Author [employer] Organization [employer] Address Unknown Phone Unavailable Care Team Providers Care Manufacturing Engineer Name Role Phone [facility] Home Comfort Zones Information [employer] Unavailable Unavailable Problems No Data Provided for This Section Medications Medication Details Route Status Patient Instructions Ordering Provider Order Date Source Azithromycin (Zithromax) 250 Mg Tablet Daily Active Kari 09/17/2017 [facility] Allergies, Adverse Reactions, Alerts Substance Category Reaction Severity Reaction type Status Date Reported Comments Source Okvkarf-Xqs-Hll Reductase Inhibitor Lightheaded, n/v Unknown Allergy to Substance Active 09/17/2017 [facility] Immunizations No Data Provided for [...] DC Date Status Source Departed Emergency Room [id number] NIESHA CONNOR MD 09/17/2017 09/17/2017 [facility] Procedures No Data Provided for [...] to help dry up nasal secretions. 09/17/2017 [facility] Social History Social History Date Source Smoking Status Start Date Stop Date Never Smoker 09/17/2017 [facility] Family History No Data Provided for This Section Advance Directives Order Name Results Value Date Source Advance Directives Advance Directives Directive Response Recorded Date/Time Does the patient have an advance directive? No 09/17/17 11:27am If yes, is advance directive on file with [facility]? No 09/17/17 11:27am If not on file with [facility] will patient provide a copy? No 09/17/17 11:27am Do you have a Directive to Physician? No 09/17/17 11:27am Do you have a Medical Power of Industrial Truck Mechanic? No 09/17/17 11:27am Do you have an [...] rights and responsibilities? Yes 09/17/17 11:27am 09/17/2017 [facility] Functional Status No Data Provided for This Section
--- NOTE | 2019-03-27 20:54 | Diagnostic Imaging Report ---
CT Abdomen and Pelvis without contrast INDICATION: Left upper quadrant pain; history of right sided wall hernia repair and gastric mass resection TECHNIQUE: Thin collimation axial images obtained from the diaphragm to the level of the pubic symphysis without nonionic intravenous contrast. Dose reduction techniques used: Automated exposure control, adjustment of the mAs and/or kVp according to patient size, standardized low-dose protocol, and/or iterative reconstruction technique. RADIATION DOSE: Total DLP: 795.66 mGy*cm Estimated effective dose: (DLP x 0.015 x size factor) mSv CTDIvol has been reviewed. It is below the limits set by the Radiation Protocol Committee (RPC). COMPARISON: CT abdomen/pelvis 01/03/2019. ABDOMEN FINDINGS: Lung Bases: Bibasilar subsegmental atelectasis/scarring. The visualized portion of the mediastinum is normal. Liver: Normal in attenuation without mass. Gallbladder: Present and appears normal. No ductal dilatation. Pancreas: Mild fatty atrophy. No mass or ductal dilatation. Spleen: Normal size without mass. There is a free surgical clip at the posterior/inferior aspect. Adrenal Glands: No evidence for mass. Kidneys: Right: No renal calculus. No cortical mass or hydronephrosis Left: No renal calculus. No cortical mass or hydronephrosis Lymph Nodes: No enlarged abdominal or retroperitoneal lymph nodes.. Aorta: Mildly tortuous but normal in diameter with scattered calcifications PELVIS FINDINGS: Bowel: Stomach: Postoperative changes of the fundus. No focal mural thickening or dilatation. Small Bowel: Normal in caliber with normal wall thickness. Large Bowel: Diverticulosis coli. No associated inflammation. Mild to moderate burden of stool in the ascending and transverse colon. Appendix: Normal. Bladder: Circumferential mural thickening. No intraluminal calculi or perivesicular inflammation. Ureters: No ureteral dilatation or calculus. The prostate gland is enlarged. Peritoneum/retroperitoneum: No free fluid or fluid collection.. Bones: Stable degenerative changes of the spine and hips. A bone island in the right femoral head is stable. Soft tissues: Right inguinal scar is new. No evidence of hernia. There is fat along the left spermatic cord. IMPRESSION: 1. No evidence of renal calculus or obstructive uropathy. 2. Diverticulosis coli. No evidence for bowel obstruction or inflammation. Mild to moderate burden of stool in the colon. Normal appendix. 3. Prostate hypertrophy and bladder wall thickening suggestive of outlet obstruction. 4. Postoperative changes of the stomach. No gastric mass is identified on this unenhanced examination. 5. Status post right inguinal hernia repair. No evidence of hernia recurrence. Signed by: Dr. Cuca Nino MD on 03/27/2019 8:51 PM
[2019-03-27] MEDS ORDERED: MAGNESIUM/ALUMINUM/SIMETHICONE 30 ML UDC PO STA (21:12)
[2019-03-27] MEDS ORDERED: MAGNESIUM/ALUMINUM/SIMETHICONE 30 ML UDC PO ONE (21:30)
== END 2019-03-27 21:25 | disposition home or self-care (01) ==
LOC: FSED 19:25
DX: R10.13 Epigastric pain (principal); R11.0 Nausea; K21.9 Gastro-esophageal reflux disease without esophagitis; E03.9 Hypothyroidism, unspecified
CPT/HCPCS: 74176; 80048; 81003; 82553; 84484; 85025; 93005; 99284

== ENCOUNTER 2019-05-05 18:19 | Emergency (ER) | payer MEDICARE ==
[~2019-05-05] VITALS: Ht 182.9 cm; Wt 99.3 kg
--- OUTSIDE RECORDS SUMMARY | 2019-05-05 18:22 | XMS REPORT | Continuity of Care Document ---
Author Author [employer] Organization [employer] Address Unknown Phone Unavailable Care Team Providers Care Material Worker Name Role Phone [facility] [employer] Unavailable Unavailable Problems No Data Provided for This Section Medications Medication Details Route Status Patient Instructions Ordering Provider Order Date Source Azithromycin (Zithromax) 250 Mg Tablet Daily Active Kari 09/17/2017 [facility] Allergies, Adverse Reactions, Alerts Substance Category Reaction Severity Reaction type Status Date Reported Comments Source Cchahzc-Out-Smx Reductase Inhibitor Lightheaded, n/v Unknown Allergy to Substance Active 09/17/2017 [facility] Immunizations No Data Provided for [...] DC Date Status Source Departed Emergency Room [id number] NIESHA CONNOR MD 09/17/2017 09/17/2017 [facility] Procedures No Data Provided for [...] to help dry up nasal secretions. 09/17/2017 [facility] Social History Social History Date Source Smoking Status Start Date Stop Date Never Smoker 09/17/2017 [facility] Family History No Data Provided for This Section Advance Directives Order Name Results Value Date Source Advance Directives Advance Directives Directive Response Recorded Date/Time Does the patient have an advance directive? No 09/17/17 11:27am If yes, is advance directive on file with [facility]? No 09/17/17 11:27am If not on file with [facility] will patient provide a copy? No 09/17/17 11:27am Do you have a Directive to Physician? No 09/17/17 11:27am Do you have a Medical Power of Rubber Compounder? No 09/17/17 11:27am Do you have an [...] rights and responsibilities? Yes 09/17/17 11:27am 09/17/2017 [facility] Functional Status No Data Provided for This Section
--- OUTSIDE RECORDS SUMMARY | 2019-05-05 18:22 | XMS REPORT | Clinical Summary ---
Author Author [facility] [facility] Address Unknown Phone Unavailable Care Team Providers Care Liner Machine Operator Name Role Phone Pcp, No PCP Unavailable Allergies Comments Active Allergy Reactions Severity Noted Date lightheadedness Epkaqko-Ftm-Qfl Reductase Other (See Medium 10/25/2018 Inhibitors Comments) [...] LAPAROSCOPY,GASTRECTOMY 01/23/2019 Surgery Simeon An MD 01/23/2019 [facility] General Internal Medicine - Encounter 01/25/2019 01/23/2019 Travel 01/18/2019 Hospital Pre-Admission Testing Encounter Ladonna Vazquez MD UPPER ENDOSCOPY,FNA W/ULTRASOUND 11/15/2018 Surgery Gastroenterology Flor Rodríguez 11/15/2018 Anesthesia Gastroenterology Event Ladonna Vazquez MD 11/15/2018 Hospital Gastroenterology Encounter 10/25/2018 Hospital Pre-Admission Testing Encounter after 05/04/2018 Social History Date Tobacco Use Types Packs/Day [...] Serial / Lot Implanted Type Area Manufactur [id number] 02/03/2022 [id number] / / [id number] Mesh Vladislav Pre-Shp 4.5x10cm [id number] Right: Groin CR - [id number] BARD:DAVOL Implanted: Qty: 1 on 01/23/2019 by Simeon An MD Procedures Comments Procedure Name Priority Date/Time Associated Diagnosis TISSUE EXAM AP Routine 01/23/2019 11:11 AM CDT HERNIORRHAPHY,HIATAL 01/23/2019 Gastric mass 10:00 AM CDT Unilateral inguinal hernia without obstruction or gangrene, recurrence not specified Case Notes 90 MINS PER NICKY(NO ICU BED NEEDED)CAT HY CALLED TO SWAP ROOM 19 AND ROOM 21/RUBEN 01/20 @ 2:17 HERNIORRHAPHY,INGUINAL 01/23/2019 Gastric mass UNILATERAL 10:00 AM CDT Unilateral inguinal hernia without obstruction or gangrene, recurrence not specified Case Notes 90 MINS PER NICKY(NO ICU BED NEEDED)CAT HY CALLED TO SWAP ROOM 19 AND ROOM 21/RUBEN 14 @ 2:17 LAPAROSCOPY,GASTRECTOMY 01/23/2019 Gastric mass 10:00 AM CDT Unilateral inguinal hernia without obstruction or gangrene, recurrence not specified Case Notes 90 MINS PER NICKY(NO ICU BED NEEDED)CAT HY CALLED TO SWAP ROOM 19 AND ROOM 21/RUBEN 14 @ 2:17 FINE NEEDLE ASPIRATE Routine 11/15/2018 (FNA) REQUEST 10:22 AM CDT FINE NEEDLE ASPIRATION BY AP Routine 11/15/2018 CLINICIAN 10:22 AM CDT REPORT OF PROCEDURE - 11/15/2018 ENDOSCOPY URL 10:18 AM CDT UPPER ENDOSCOPY,FNA 11/15/2018 Abnormal findings on W/ULTRASOUND 10:00 AM CDT diagnostic imaging of abdomen Special Needs (LINEAR SCOPE) after 05/04/2018 Results * Tissue Exam (01/23/2019 11:11 AM CDT) Case Report Surgical Pathology [facility] Report [facility] Case: [id number] Authorizing Provider:Simeon An, Collected: 01/23/2019 1111 Ordering Location: [facility] PERIOPERATIVE Received: 01/23/2019 1437 SERVICES Pathologist: Pablo Flaherty MD Specimen:Stomach, PARTIAL GASTRECTOMY DIAGNOSIS STOMACH, PARTIAL GASTRECTOMY: 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 proliferation, compatible with [facility] patient's prior biopsy [id number]. The mitotic count [...] based on the information from [employer] GIST protocol.) Clinical correlation and follow-up are recommended. SYNOPTIC REPORT GASTROINTESTINAL STROMAL TUMOR [facility] (GIST): Resection(GIST Res [facility] - All Specimens) CLINICAL Preresection Treatment:Previous biopsy [...] SPECIAL STUDIES Immunohistochemical Studies:Not performed CPT Code(s) 61967, 09818 [facility] CLINICAL HISTORY Gastric mass, unilateral [facility] inguinal hernia without [facility] obstruction or gangrene, recurrent, no specified, right SPECIMEN SOURCE Received in one part. Partial [facility] gastrectomy [facility] GROSS DESCRIPTION Received fresh labeled with [facility] the patient's name, accession [facility] number and "stomach" is a 7.0 x [...] nodes are present in the adipose tissue. Stucco Applicator sections are submitted. Ink code: Blue staple margin; black serosa; Section code: A1-A7 mass in its entirety; A8 union representative of nodular and hemorrhagic mucosa. CG/bc MICROSCOPIC DESCRIPTION Performed. [facility] SPECIAL STUDIES The interpretation of this [facility] case included the use of [facility] immunohistochemistry or special stains. Control Slides Examined: In-house known positive controls were evaluated along with the test tissue. These control slides run alongside of the patients sample show appropriate staining. Internal positive and negative controls when available are evaluated Immunohistochemistry technical testing was performed at [facility], Pathology Laboratory where it was [...] Tissue Performing Organization Address City/State/Zipcode Phone Number [address] [address] [facility] * FINE NEEDLE ASPIRATE (FNA) REQUEST (11/15/2018 10:22 AM CDT) Cytology See Separate Report [facility] Specimen Fine Needle Aspirate Performing Organization Address City/[facility]/Zipcode Phone Number [address] [address] [facility] * Fine Needle Aspirate by Clinician (11/15/2018 10:22 AM CDT) Case Report Medical Cytology [facility] Report [facility] Case: [id number] Authorizing Provider:Ladonna Vazquez MDCollected: 11/15/2018 1022 Ordering Location: [facility] Endoscopy Received: 11/16/2018 0852 Services Pathologist: Pablo Flaherty MD Specimen:Gastric DIAGNOSIS SUBEPITHELIAL GASTRIC LESION, [facility] FNA BY CLINICIAN (CYTOSPINS [facility] AND CELL BLOCK OF ASPIRATE): - GASTROINTESTINAL STROMAL TUMOR, SPINDLE CELL TYPE ( SEE COMMENT) Signing Pathologist Direct Phone Line: [phone] COMMENT Sections show spindle cell [facility] proliferation with [facility] predominantly bland features. No significant increase in [...] final resection specimen is recommended. CPT Code(s) 35761, 45863, 32172, 69656 X 4 [facility] CLINICAL DATA 2.[address] [facility] (subepithelial) lesion found [facility] in the cardia of the stomach SPECIMEN SOURCE GASTRIC LESION FNA [facility] GROSS DESCRIPTION Prepared cell block(A2) and [address] [facility] cytospins from 14 ml cytorich [facility] red fixative sample Collected: [id number] Received: [id number] MICROSCOPIC DESCRIPTION Performed. [facility] SPECIAL STUDIES The interpretation of this [facility] case included the use of [facility] immunohistochemistry or special stains. Please see the immunohistochemistry results in the COMMENT section. Immunohistochemistry technical testing was performed at [facility], Pathology Laboratory where it was [...] complexity clinical laboratory testing. Gross assessment was [facility] performed at [place], Department of [facility] Pathology, [address] [place] [id number], Technical component was [facility] performed at [place], Department of [facility] Pathology, [address] [place] [id number], Professional component [facility] was performed at [place], Department of [facility] Pathology, [address] [place] [id number], Specimen Fine Needle Aspirate Narrative Performed At Performing Organization Address City/State/Zipcode Phone Number [address] [address] [facility] * REPORT OF PROCEDURE - ENDOSCOPY URL (11/15/2018 10:18 AM CDT) Narrative Performed At after 05/04/2018 Insurance Payer Benefit Subscriber ID Type Phone Address Plan / Group [facility] x[facility]xx MEDICARE ADV Advance Directives For more information, please contact: [address] [address] Date Inactivated Comments Code Status Date Activated 01/23/2019 2:38 PM Full Code 01/23/2019 8:20 AM This code status was determined by: Patient
--- NOTE | 2019-05-05 18:59 | NUR ---
REPORT TO JUSTYNA
--- NOTE | 2019-05-05 21:06 | Diagnostic Imaging Report ---
EXAM: Left Lower Extremity Venous Duplex Ultrasound INDICATION: Left leg swelling COMPARISON: None TECHNIQUE: Teague scale, color Doppler and spectral waveform analysis of the left lower extremity deep venous system was performed. FINDINGS: Common Femoral: Fully compressible with normal spontaneous waveforms. Proximal Greater Saphenous: Fully compressible. Femoral: Fully compressible with normal spontaneous waveforms. Normal response to augmentation. Proximal Deep Femoral: Normal spontaneous waveforms. Popliteal: Fully compressible with normal spontaneous waveforms. IMPRESSION: No evidence of deep venous thrombosis above the left calf. Signed by: Dr. Mark Ballard MD on 05/05/2019 9:02 PM
[2019-05-05 21:13] VITALS: BP 143/88
== END 2019-05-05 21:20 | disposition home or self-care (01) ==
LOC: FSED 18:19
DX: M79.605 Pain in left leg (principal); M79.89 Other specified soft tissue disorders; I10 Essential (primary) hypertension
CPT/HCPCS: 93971; 99283

== ENCOUNTER 2021-01-07 15:51 | Emergency (ER) | payer MEDICARE ==
[~2021-01-07] VITALS: Ht 182.9 cm; Wt 102.5 kg
[2021-01-07] MEDS ORDERED: ASPIRIN 81 MG CHEW TAB PO ONE (16:30)
[2021-01-07] MEDS ORDERED: FAMOTIDINE 20 MG/2 ML VIAL IV ONE ×2 (16:30→16:37)
[2021-01-07] MEDS ORDERED: DEXAMETHASONE SOD PHOS 10 MG/1 ML VIAL IV ONE (16:30)
[2021-01-07] MEDS ORDERED: ACETAMINOPHEN 325 MG TAB PO ONE (16:30)
[2021-01-07] MEDS ORDERED: DEXAMETHASONE SOD PHOS INJ 4 MG/ML VIAL ONE (16:37)
[2021-01-07] MEDS ORDERED: ACETAMINOPHEN 325 MG TAB ONE (16:37)
[2021-01-07] MEDS ORDERED: ASPIRIN 81 MG CHEW TAB ONE (16:37)
[2021-01-07] MEDS ORDERED: IOPAMIDOL 370 MG/ML 200 ML INFUS..BTL INJ ONE (17:19)
[2021-01-07] MEDS ORDERED: SODIUM CHLORIDE 0.9% 50ML 0 ML ONE (17:19)
[2021-01-07] MEDS ORDERED: OMEPRAZOLE40 MG PO (17:41)
[2021-01-07] MEDS ORDERED: VIAGRA100 MG (17:41)
[2021-01-07] MEDS ORDERED: SYNTHROID125 MCG PO (17:41)
[2021-01-07] MEDS ORDERED: LYRICA25 MG PO (17:41)
[2021-01-07] MEDS ORDERED: TOPAMAX50 MG PO (17:41)
[2021-01-07] MEDS ORDERED: MONTELUKAST SOD10 MG PO (17:41)
[2021-01-07] MEDS ORDERED: RHINOCORT ALL8.43 ML (17:41)
[2021-01-07] MEDS ORDERED: PEPCID20 MG PO (17:41)
== END 2021-01-07 17:48 | disposition home or self-care (01) ==
LOC: FSED 16:21
DX: R07.89 Other chest pain (principal); R94.31 Abnormal electrocardiogram [ECG] [EKG]; E78.5 Hyperlipidemia, unspecified; K21.9 Gastro-esophageal reflux disease without esophagitis; E03.9 Hypothyroidism, unspecified; E05.00 Thyrotoxicosis with diffuse goiter without thyrotoxic crisis or storm
CPT/HCPCS: 71046; 80053; 82553; 84484; 85025; 85379; 93005; 96374; 96375; 99284; J1100; Q9967